=== PATIENT | male | born 1990 | race Caucasian/White ===

== ENCOUNTER 2018-10-10 11:52 | Emergency (ER) | payer BC, SELFPAY ==
[2018-10-10 11:54] VITALS: BP 167/89; PULSE 79; RESP 17; TEMP 36.8; O2SAT 97; BMI 42.2
--- NOTE | 2018-10-10 12:30 | ED.VISSUMM ---
- ER Visit Summary Date of Service: 10/10/18 Chief Complaint: Depressed and suicidal History of Present Illness: The patient is a 27 M no senior past medical history. He does see a counselor at a [facility] in [place]. He is not under formal psychiatric care. Currently has no primary care physician. He is on no medications. States currently he and his are . He said to try to work through that. That has been depressed. He currently has no children. He states his job is going well. He got upset last night and started punching himself multiple times in his legs. He denies any overdose attempt. He is never been admitted for psychiatric care. Physical Examination: Young male no acute distress. Vital signs are stable afebrile. Currently he is calm and cooperative. He is acting appropriately with the staff. H EENT exam unremarkable. Neck nontender. No signs of trauma. Lungs clear to auscultation bilaterally. Heart regular rate and rhythm no murmur. Chest wall nontender. Abdomen soft nontender. Normal bowel sounds no peritoneal signs. Patient is moving all 4 extremities. The neurovascular intact. Equal symmetrical agricultural education teacher strength. Dorsi plantar flexion intact. Full range of motion both upper and lower extremities. No signs of trauma. Back nontender. Neurologically he is awake and alert with no focal motor deficits. No signs of toxidrome. No smell of alcohol. Test Results: CBC normal white count of 6. Hemoglobin 14. Electrolytes unremarkable. Tox screen negative. Alcohol normal. Emergency Department Course and Treatment: Patient will undergo ED mental health evaluation rating labs. Crisis evaluation. Currently I do feel that he will be able to be discharged home safely. I will discussed that with crisis after their evaluation. Treatment Plan: Spoke with the counseling center personnel. He is willing to contract for safety. He will also follow-up with outpatient psychiatric therapy tomorrow. Counseling center personnel and myself are both comfortable with him being discharged home. I reevaluated the patient and he is currently doing well at 1439. Disposition: Discharge Impression: Acute depression Suicidal ideation This note was generated with [employer] dictation software. It may contain incorrect words, spelling, and punctuation that were not noted in review of the chart prior to signing ED Disposition - Plan for ED Patient: Chief Complaint: Suicidal Referrals: Care Physician,No Primary [Primary Care Provider] -
[2018-10-10 12:48] LABS: Absolute Lymphocyte Count 2.48 X10^3/ul (0.83-4.51); Absolute Neutrophil Count 3.7 X10^3/uL (2.0-7.7); Basophil# 0.02 X10^3/uL; Basophil% 0.3 % (0-1); Eosinophils% 2.9 % (0-5); Hematocrit 43.2 % (40-54); Hemoglobin 14.8 g/dl (13.0-16.5); Lymphocyte # 2.48 X10^3/ul (4.0); Mean Corp Hgb Conc 34.3 g/gl (32-36); Mean Corpuscular Hgb 28.5 pg (27.0-32.0); Mean Corpuscular Volume 83.2 fL (80-94); Mean Platelet Vol. 9.2 fl (6.2-12.0); Monocyte# 0.48 X10^3/uL; Neutrophil # 3.69 X10^3/uL (2.7-7.7); Neutrophil % 53.7 % (47-70); Platelet Count 364 K/mm3 (150-450); RBC Distribution Width SD 38.8 fl (35.1-43.9); Red Blood Count 5.19 M/mm3 (4.6-6.2); White Blood Count 6.9 K/mm3 (4.4-11.0)
[2018-10-10 12:49] LABS: POSITIVE COUNT NO; POSITIVE DIFFERENTIAL NO; POSITIVE MORPHOLOGY NO
[2018-10-10 12:55] LABS: Amphetamine Urine VISTA NEGATIVE (<1000 ng/mL); Barbiturate Urine VISTA NEGATIVE (< 200 ng/mL); Benzodiazepine Urine VISTA NEGATIVE (< 200 ng/mL); Cocaine Urine VISTA NEGATIVE (< 300 ng/mL); Ecstacy Urine VISTA NEGATIVE (< 500 ng/mL); Methadone Urine VISTA NEGATIVE (< 300 ng/mL); PCP Urine VISTA NEGATIVE (< 25 ng/mL); THC Urine VISTA NEGATIVE (< 50 ng/mL); Vista UDS pH Range 5
[2018-10-10 12:57] LABS: Anion Gap 10 (5-15); BUN 14 mg/dL (7-18); BUN/Creat Ratio 13.2 RATIO (10-20); Calcium,Total 8.7 mg/dL (8.5-10.1); Chloride 105 mmol/L (98-107); Creatinine, Serum 1.06 mg/dL (0.70-1.30); EST Glomerular Filtration Rate 90 mL/min (>60); Est Glom Filt Rate - Afr Amer 109 mL/min (>60); Estimated Creatinine Clearance 113.46 ml/min; Glucose 94 mg/dL (74-106); Potassium 3.9 mmol/L (3.5-5.1); Sodium Level 141 mmol/L (136-145)
[2018-10-10 13:20] LABS: Alcohol, Blood (Medical)-Serum < 3.0 mg/dL
--- NOTE | 2018-10-10 13:33 | NURSING ---
HANNY, CRISIS, HERE FOR PATIENT
--- NOTE | 2018-10-10 14:40 | ED.DEP ---
ED Disposition - Plan for ED Patient: Disposition: Home or Assisted Living Chief Complaint: Suicidal Instructions: ED Depression Referrals: Counseling,Center [GROUP OF PHYSICIANS] - 1 Day Additional Instructions: Return if you are feeling worse. Follow-up with outpatient counseling center evaluation tomorrow.
--- NOTE | 2018-10-10 14:43 | ED.RN ---
BELONGINGS RETURNED TO PATIENT. DISCHARGE INSTRUCTIONS GIVEN TO AND REVIEWED WITH PATIENT, PATIENT DENIES QUESTIONS OR CONCERNS AND VOICES UNDERSTANDING OF DISCHARGE INSTRUCTIONS. PT AMBULATES OUT OF ROOM WITHOUT DIFFICULTY.
== END 2018-10-10 14:44 | disposition home or self-care (01) ==
PROVIDERS: Emergency Provider Emergency Medicine
DX: F32.9 Major depressive disorder, single episode, unspecified (principal); R45.851 Suicidal ideations
CPT/HCPCS: 80048; 80307; 80320; 85025; 99283; G0480

== ENCOUNTER 2018-10-17 09:00 | Outpatient (RCR) | payer BC, SELFPAY ==
--- NOTE | 2018-10-17 09:05 | BH.SGPN.GN ---
Behaviors/Verbalizations/Mental Status: [] Pt eye contact fair, casually dressed, motor activity appropriate, speech normal rate and tone, mood anxious and depressed, constricted affect, thoughts linear and intact, no evidence of delusions or hallucinations. Client Response/Progress/Benefit: [] Client shared he is reaching out to help through the IOP program because 10 months ago he was from his due to several issues that happen once client started to experience repressed traumatic memories. Client reported he is hoping to reconciliation his marriage but is unsure if that will occur because other issues have come to light since being . 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 Question another positive is his best friend from since then he is visiting currently. Client shared her stressor is having copious amount of confusion over the trauma, recently having blackouts, and his relationship. Client seem to benefit from support from peers. Client to continue IOP level care to stabilize moods, increased healthy coping, and prevent decompensation. Narrative Note: []
--- NOTE | 2018-10-17 09:09 | BH.COMM ---
Communication Note - Communication with Client Communication Note: Met with patient. Completed intake paperwork. No significant changes since pre-admission screening. Denies any active suicidal ideations, plan, or intent.
--- NOTE | 2018-10-17 10:10 | BH.SGPN.GN ---
Behaviors/Verbalizations/Mental Status: [] Eye contact is good. Motor activity is appropriate. Appearance is casual. Speech is Appropriate. Mood is depressed. Affect is flat. Thoughts are linear and logical. No evidence of psychosis. Client Response/Progress/Benefit: [] Pt was an active participant in group activity however no not participate in group discussion. Attentive during the discussions on the the definition and benefits to social support in mental wellness. Attentive during group discussion on obstacles to seeking support. Did well during activity and was able to connect activity to social supports and was attentive during discussion on the importance of asking questions, being specific, clarifying perspectives, and clarifying emotions are necessary when seeking support. Benefited from psychoeducation. Limited progress noted as pt spoke very little however was attentive. This was pt's first day in IOP. Will continue in IOP to maintain safety, stabilize mood, and prevent decompensation. Narrative Note: []
--- NOTE | 2018-10-17 11:10 | BH.SGPN.GN ---
Behaviors/Verbalizations/Mental Status: [] Eye contact is good. Motor activity is appropriate. Appearance is casual. Speech is Appropriate. Mood is depressed. Affect is flat. Thoughts are linear and logical. No evidence of psychosis. Client Response/Progress/Benefit: [] Pt was attentive during group discussion and completed worksheets. Minimal participation during discussion on different types of social support such as mental health, spiritual,personal, and professional. Group discussed the importance of support in different settings. Completed worksheet regarding pt's support desired (mental health), how this support will help (decrease anxiety, decrease isolation, break out of toxic cycle), and steps to take to get this support (reach out, build connections, seek therapy). Progress noted as pt was able to identify the different types of support and strategies to reach out to these supports. Will continue in IOP to maintain safety, prevent decompensation, and stabilize mood. Narrative Note: []
--- NOTE | 2018-10-18 09:50 | BH.MDN_ITS ---
Multi-Disciplinary Note - Note 60-min Individual Time Started:: 12:19 Date: 10/17/18 Purpose of session/treatment goals addressed:: The purpose of session was to discuss current symptoms, stressors, and functioning. Another purpose was to gather additional background information and begin developing goals client would like to focus on during treatment. Eye Contact:: Good Motor Activity:: Slowed Appearance:: Neat, Casual Speech:: Soft, Other - prolonged response Mood:: Anxious, Depressed Affect:: Flat Thoughts:: Linear, Logical, Other - slowed processing, No evidence of hallucinations/delusions noted Staff Interventions:: Therapist asked open ended questions to build rapport and gather client's thoughts and feelings on current functioning, potential barriers, and additional stressors. Therapist gathered additional information in regard to client background and history of mental health sx. Therapist provided support by attentively and empathetically listening and responding. Utilized NC techniques to begin establishment of treatment goals. Client Response:: Client receptive of session, willing to engage and provide input. Client openly discussed thoughts, feelings, and concerns surrounding recent stressors associated with increased mental health symptoms. Client expressed having several psychosocial stressors impacting ability to function at baseline and resulting in increased traumatic memories causing panic and blackout spells. Client indicates hx of self-harming via punching my thighs during these blackout spells. Denies active self harming urges or plan. Client indicated the heart of his concern revolves around his relationship with his which has become increasingly strained in the past 6 months. Reports they are currently and Client is living in [place] with 2 roommates whom he identifies as supportive. Client went into their relationship hx and discussed primary areas of concern associated. Client noted difficulties related to intimacy with his as the catalyst to resurfacing past trauma and his increased depressive and anxious feelings. He additionally believes reports of ?blacking out? and ?losing periods of time? is associated as well. He indicated his relationship is causing discord in other areas such as finances, self- esteem, and ability to move forward in his life. He indicated wanting to be able to increase his ability to manage and move past trauma triggers as well as develop skills to better manage his emotional and mental health and wellbeing. Risks/Concerns:: Client denies SI/HI plan or intention to date. It is a concern that client recently presented to emergency room for suicidal ideation at request of outpatient therapist. Denies plan or intent at time of visit. Client denies any current SI, plan, or intent. Willing and able to contract for safety. Client agrees to call 911 or go to the nearest emergency room if he feel unable to maintain safety of self/others. Progress Toward Goals/Plan:: Limited progress to report as it is CLient first day in IOP program. CLient does not yet have goals established but indicates a desire to improve ability to identify and manage trauma triggers, decrease depression and anxiety, and develop health means for coping.He appears and indicates being motivated to improve functioning and mental health stability. The plan is for client to continue in IOP tx to prevent decompensation and maintain safety. Time Stopped:: 13:22
--- NOTE | 2018-10-18 10:04 | BH.MTP ---
Master Treatment Plan - Patient Information Program Physician:: Ashanti Gibbons Primary Therapist:: rl Redd - Psychiatric Diagnoses Psychiatric Diagnoses:: Major depressive disorder F 33.2. PTSD. Anxiety Diagnosis Code(s):: F33.2 - Estimated LOS Estimated LOS (in weeks):: 6 Problem/Goal #1 - Problem/Goal #1 Stated Goal:: Client will increase mood stability and decrease depressive symptoms, and agitation due to Major Depression through Intensive Outpatient Program. Description of Barriers: Stigma associated with mental illness, relationship conflicts, hx of trauma, lack of motivation, few supports. Functional Impact: Currently daily functioning is severely impacted by depression, ptsd triggers, and anxiety. Pt reports symptoms effecting ability to work, led to crying spells, impacted relationship with supports, and effected ability to function at baseline. Goal Relevant Strengths/Supports: motivated, resilient, intelligent - Objectives Objective #1 Stated Objective: Client will identify 2-3 triggers and 2-3 coping skills to reduce depressive symptoms that lead to negative thinking. Interventions: Through individual and group counseling will help client identify her triggers and teach client various coping strategies to effectively cope with depressive symptoms. Discharge Criteria: Client will have achieved this goal when can identify at least 2 triggers, verbalize two healthy coping strategies and defeat suicidal ideation. Target Date: 11/28/18 Review Date: 11/14/18 Problem/Goal #2 - Problem/Goal #2 Stated Goal:: Client will reduce overall frequency, intensity, and duration of the anxiety so that daily functioning is not impaired. Description of Barriers: Stigma associated with mental illness, relationship conflicts, hx of trauma, lack of motivation, few supports. Functional Impact: Currently daily functioning is severely impacted by depression, ptsd triggers, and anxiety. Pt reports symptoms effecting ability to work, led to crying spells, impacted relationship with supports, and effected ability to function at baseline. Goal Relevant Strengths/Supports: motivated, resilient, intelligent - Objectives Objective #1 Stated Objective: Client will learn and implement 2-3 calming skills to reduce overall anxiety and manage anxiety symptoms. Interventions: Through individual and group counseling client will learn calming/relaxation skills and practices relaxation skills daily Discharge Criteria: Client will have achieved this goal when can verbalize at least 2 calming skills and implement those skills. Target Date: 11/28/18 Review Date: 11/14/18 Objective #2 Stated Objective: Client will decrease ruminating thoughts which cause anxiety. Interventions: Through individual and group counseling pt. will be provided with education on anxiety and effective coping skills. Will explore more in-depth with pt. cause and triggers to ruminating thoughts as well as obstacles to overcoming these ruminative thoughts. Discharge Criteria: Will have completed cost analysis and be more self-aware of triggers to ruminations as well as strategies to better manage ruminations. Target Date: 11/28/18 Review Date: 11/14/18
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
--- NOTE | 2018-10-21 09:07 | BH.SGPN.GN ---
Behaviors/Verbalizations/Mental Status: [] Pt eye contact fair, casually dressed, motor activity appropriate, speech normal rate and tone, mood anxious and depressed, constricted affect, thoughts linear and intact, no evidence of delusions or hallucinations. Reviewed client?s symptom tracker, no signs of suicidal ideation, plan, or intent as of today. Client Response/Progress/Benefit: []Pt engaged throughout session as shown by pt listening attentively to others and sharing thoughts and feelings. Pt reported he had an overall good Thanksgiving gathering with his family. Pt shared he was anxious to go to the family libertarian because it's the first holiday event he has been to without his since they . Pt reported he did get to speak to his dad about things that have been happening in his life which pt reported was positive for him to connect with his dad. Pt stated he is still ruminating about how his relationship with his is not what he wants. Progress noted AEB pt still attending the family holiday dinner despite being anxious due to it being first holiday event being from his . Pt seemed to benefit from expressing thoughts and feelings, as well as receiving support from peers. Pt to continue IOP level of care to decrease depression, increase healthy coping skills, and prevent decompensation. Narrative Note: []
--- NOTE | 2018-10-21 11:15 | BH.SGPN.GN ---
Behaviors/Verbalizations/Mental Status: []Client alert and oriented, neatly dressed and groomed. Eye contact fair. Motor activity restless. Speech within normal limits. Affect flat, mood dysthymic. Thoughts linear, logical, no signs of hallucinations or delusions. Client Response/Progress/Benefit: []Client responded well to session, contributing when prompted, active in setting a personal goal. Client established a SMART goal to help client connect with peers and increase self-confidence. Client?s goal is to practice being vulnerable by sharing two times per group on days client attends IOP. Client identified his barriers as anxiety and judgement. Client able to develop strategies to overcome barriers including: starting small and focusing on positives. Client appeared to benefit from setting a SMART goal to improve his mental health and self-confidence. Progress limited as client has only attended two IOP sessions. Client to continue IOP as he continues to struggle with mood instability, depression, and regulation his emotions.
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
--- NOTE | 2018-10-21 11:44 | BH.DR.ITP ---
Initial Treatment Plan - Patient Information Visit Information: ADMISSION DATE: EXPECTED LOS: 4-6 weeks Diagnoses:: Major depressive disorder F 33.2. PTSD - Problems/Symptoms Problem #1:: Depression Symptom:: Sad mood, anhedonia, difficulty concentrating, suicidal ideation, biologic disruption of sleep Problem #2:: Anxiety Symptom:: Rumination, intrusive traumatic memories, avoidance, dissociative symptoms
--- NOTE | 2018-10-28 09:10 | BH.SGPN.GN ---
Behaviors/Verbalizations/Mental Status: [] Eye contact is good. Motor activity is appropriate. Appearance is neat. Speech is Appropriate. Mood is depressed. Affect is flat. Thoughts are linear and logical. No evidence of psychosis. Reviewed daily check in sheet and pt reports 3/5 for suicidal ideations and 4/5 for intent. Individual counselor notified. Client Response/Progress/Benefit: [] Pt spoke when prompted however was attentive throughout the group. Emotion for today is stressed. Shared with the group that he has had an extremely stressful week reports challenges with communication with ex- and some new legal concerns. Also reports challenges with episcopalian support stating that he is beginning to feel unheard and misunderstood. Was able to identify some positives related to work accomplishments. 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 Benefited from group support and encouragement. Limited progress noted per pt report and daily check-in sheet. Struggling with fleeting suicidal ideations, psycho-social stressors, recent separation, and trauma. Will continue in IOP to maintain safety, decrease depression, and prevent further decompensation. Narrative Note: []
--- NOTE | 2018-10-28 10:20 | BH.SGPN.GN ---
Behaviors/Verbalizations/Mental Status: []Pt eye contact good, casually dressed, motor activity appropriate, speech normal rate and tone, mood dysthymic, congruent affect, thoughts linear and intact, no evidence of delusions or hallucinations. Client Response/Progress/Benefit: []Pt listened attentively to peers and contributed to discussion at times. Pt connected with that quote that often in his relationship there was the illusion they were communicating, however looking back on the relationship he can note they were not fully communicating because not clear or direct . Pt reported a communication barrier is making assumptions because assumptions are often incorrect and lead to increased conflict or problems. Pt added his thoughts to discussion about the four different types of communication (passive, passive-aggressive, aggressive, and assertive). Pt able to identify benefits and costs to each type of communication. Pt reported he finds himself to have a cyclical pattern to his communication in which he will start off being passive then attempt to be assertive, but if that doesn't work will return to passive communication. Pt recognizes being passive reinforces his depressed and anxious symptoms. Pt seemed to benefit from increased awareness of the different types of communication as well as learning about benefits and costs of each style. Narrative Note: []
--- NOTE | 2018-10-28 14:58 | BH.MDN ---
Multi-Disciplinary Note - Note 45-min Individual Time Started:: 11:47 Date: 10/28/18 Purpose of session/treatment goals addressed:: Purpose was to follow-up with patient regarding current symptoms, stressors, and functioning, as well as assess for safety as client indicated increased guthrie for SI on daily symptom tracker. Another purpose was to discuss impact of complex trauma on the brain and stress responses. Additional topics included: Cognitive triangle, safety planning Eye Contact:: Good Motor Activity:: Appropriate Appearance:: Neat, Casual Speech:: Appropriate Mood:: Anxious, Depressed Affect:: Congruent Thoughts:: Linear, Logical, No evidence of hallucinations/delusions noted Staff Interventions:: Asked open-ended questions to elicit information regarding current symptoms and stressors. Utilized reflective listening and empathic responses to normalize client emotions and concerns. Completed risk assessment and aided Client in identifying a healthy coping plan for the weekend. Provided psychoeducation on trauma and potential impact of triggers on stress response. Introduced CBT therapy and provided Client with homework to identify unhealthy or negative thoughts over weekend. Client Response:: Client willing to meet with this therapist to assess for safety and discuss concerns regarding increased scores for suicidal ideation on daily symptom tracker for this date. Client expressed it has been a really stressful week and went on to discuss several psychosocial stressors increasing client anxiety and stress levels. He attributes starting off the week ill as the initial stressor impacting his mental health. Indicates sx were further exacerbated by ongoing legal complications related to a coworker's workman's compensation claim and a dispute regarding finances with client?s estranged . Client went on to express a blackout occurrence following conversation with , in which client reports experiencing loss of time for a period of 7 minutes. Client discussed that he had been at work at the time and next thing he remembers is I woke up staring in the mirror. Client receptive of discussion regarding how past trauma can impact stress response and reviewing areas in which trauma is related to learned coping behaviors. Client shared that he does not currently feel suicidal at this time and further indicated that he has marked high scores on daily sx tracker due to experiencing increased passive thoughts of and stress on the previous date. Client reports that this had likely been due to current stressors in his life and difficulties in coping with separation from his . Client reports plans to spend time celebrating his birthday with his roommate this weekend and indicates he will be able to maintain safety. Willing to seek crisis services should he need over the weekend and follow-up with this therapist on Wednesday, October 31, 2018. Risks/Concerns:: No risks or concerns at this time. Client indicates increased SI on daily symptom tracker was referring to thoughts occurring previous night. Client denies any active suicidal ideation, plan, or intent. Discussed feelings of emotional heaviness and increased stressors today though feels able to maintain safety. Client reports that his synagogue and close friends in the area or primary motivations for living. Client indicates willingness to seek crisis services at local ER should he feel unable to maintain safety over the weekend. Receptive of safety planning with this therapist and indicates plans to celebrate his birthday on Wednesday which is indicative of future orientation. Progress Toward Goals/Plan:: No progress at this time as per client report he has been struggling significantly with negative ruminating thoughts causing increased anxiety and feelings of being overwhelmed. CLient reports onging difficulties in dealing with overwhelming emotions during times of increased stress, which he identifies as resulting in passive thoughts of and/or black out spells. Reports last black out and SI as earlier this week following an argument with . CLient has shown an increase in ability to begin identifying common trigger of high emotional state leading to increased symptoms. CLient continues to report high levels of motivation and is willing to complete homework assigned. Continued IOP with focus on increasing mental health understanding and sx management, as well as begin working on cognitive restructuring skills. Time Stopped:: 12:28
== END 2018-10-28 23:59 ==
LOC: BHIOP 09:00
PROVIDERS: Referring Provider Psychiatry & Neurology Psychiatry; Visit Provider Psychiatry & Neurology Psychiatry
DX: F33.2 Major depressive disorder, recurrent severe without psychotic features (principal); F41.9 Anxiety disorder, unspecified; F43.10 Post-traumatic stress disorder, unspecified
CPT/HCPCS: H0035; 90834; 90837; 90853

== ENCOUNTER 2018-10-31 09:00 | Outpatient (RCR) | payer BC, SELFPAY ==
--- NOTE | 2018-10-31 09:10 | BH.SGPN.GN ---
Behaviors/Verbalizations/Mental Status: [] Eye contact is good. Motor activity is appropriate. Appearance is casual. Speech is Appropriate. Mood is depressed. Affect is flat. Thoughts are linear and logical. No evidence of psychosis. Reviewed daily check in sheet and no reports of suicidal ideations or intent. Client Response/Progress/Benefit: [] Pt spoke only when prompted. Appeared attentive during group discussions. Emotion for today is positive. Shared with the group that his weekend had its ups and downs however overall it was well. Reports occasional emotional distress, ruminations, and depression however overall had fun times with support. Pt's birthday was this weekend and her reports that it was challenging not having his present to celebrate with him as they had been together for several years. Grief reactions and difficulty adjusting. Benefited from group support and encouragement. Progress noted per pt report. Will continue in IOP to maintain safety, prevent decompensation, and stabilize mood. Narrative Note: []
--- NOTE | 2018-10-31 10:15 | BH.SGPN.GN ---
Behaviors/Verbalizations/Mental Status: [] Pt eye contact good, casually dressed, motor activity appropriate, speech normal rate and tone, mood euthymic, congruent affect, thoughts linear and intact, no evidence of delusions or hallucinations. Client Response/Progress/Benefit: []Pt contributed to discussion and listened attentively to peers. When reviewing the quote pt reported assumptions can be barriers placed in front of ourselves because often the assumptions are incorrect and lead to additional problems. Pt provided personal example in which over the weekend he made assumptions about a situation that lead to increased problems and stress for him. Pt shared in his current reality I feel like a lot of people have gaslighted me which he reported has contributed to his confusion and questioning himself. Pt reported in his desired reality he wants to be confident about who he is as a person, his wants, and not doubt himself. Pt seemed to benefit from increased awareness of his current and desired realities. Narrative Note: []
--- NOTE | 2018-10-31 11:14 | BH.SGPN.GN ---
Behaviors/Verbalizations/Mental Status: [] Pt eye contact good, casually dressed, motor activity appropriate, speech normal rate and tone, mood euthymic, congruent affect, thoughts linear and intact, no evidence of delusions or hallucinations. Client Response/Progress/Benefit: [] Client contributed thoughts and ideas at times and listened attentively to others. Client identified his obstacles to achieving his desired reality include: Insecurity, toxic people, negative thoughts, false accusations, excuses, pride, passivity, and second-guessing. Client identified insecurity to be the most impactful obstacle currently. Client worked corporally with peers to identify strategies and ideas to overcome the various obstacles that keep people from moving forward. Client seemed to have benefit from increasing repertoire of skills and strategies that can help him overcome his personal obstacles. Client to continue [facility] level care to decrease depression, increased self-esteem, and prevent decompensation. Narrative Note: []
--- NOTE | 2018-10-31 14:14 | BH.MDN ---
Multi-Disciplinary Note - Note 60-min Individual Time Started:: 12:16 Date: 10/31/18 Purpose of session/treatment goals addressed:: The purpose of this session was to assess current symptoms, stressors, and treatment goal progress. Another purpose was to provide education on cognitive distortions and aid client in identifying common distorted thinking patterns used as well as strategies to begin challenging and replacing these. Eye Contact:: Good Motor Activity:: Appropriate Appearance:: Casual Speech:: Appropriate Mood:: Anxious, Dysthymic, Other - reflective Affect:: Congruent Thoughts:: Linear, Logical, No evidence of hallucinations/delusions noted Staff Interventions:: Asked open-ended questions to elicit information on current sx, stressors, and tx goal progress. Utilized CBT concepts to provide education on cognitive distortions and impact of thoughts on emotions, behaviors, and healthy decision making. Provided various reframing and thought challenging strategies as well as aided provided an example of application of each strategy discussed. Gave assignment to begin daily thought log. Client Response:: Client receptive of session and actively engaged in discussion throughout. He indicated that overall his weekend had gone better than anticipated to which he attributes spending time with supports and use of healthy distractions. CLient indicated he had been concerned that yesterday would be rough as it was client's birthday which has historically been a triggering date. CLient shared the day had initially been alittle difficult and that he had an uncomfortable encounter with one of the leader's of the [facility] in which client caught himself struggling not to ruminate on. CLient however went on to explain limiting future interaction with that person by leaving the service early and felt better as a result. He discussed spending the remainder of the day cleaning and later celebrating his birthday with a group of friends. CLient discussed overall feeling less depressed on this date though continues to struggle with ruminating thoughts causing anxiety and increased stress associated with other's opinions, his relationship with his , and occupational frustrations. Client was receptive of discussion reviewing distorted thinking patterns and the impact thought distortions can have on management of mental health symptoms, self-esteem, and relationships. CLient able to identify specific examples in use of distortions, describing times he has struggled with should & must statements, absolutes, and personalization. Identified connecting with how use of distortions can impact ability to make healthy decisions and resulting in maladaptive coping behaviors. CLient noted finding asking self why am I feeling this way, is there another way to look at this, and am I asking myself something I can't know the answer to as strategies he may benefit from in challenging distortions. CLient receptive of beginning a CBT thought log to improve awareness and ability to apply cognitive restructuring skills. Risks/Concerns:: Denies any suicidal ideations, plan, or intent to date, 10/31/18. Denies any passive thoughts of and indicates an ability to maintain safety at this time. Progress Toward Goals/Plan:: Progress noted in client report of decreased levels of depression on this date. CLient denies any SI or blacking out since last session on 10/28/18 and is doing well to begin increasing awareness of ways treatment materials apply to his own mental health experiences. CLient continues to report high levels of anxiety associated with intrusive ruminating thoughts about current psychosocial stressors, most prodominately his marraige. Client continues to appear to seek external validation of thoughts, specifically those associated with personal decisions and self-esteem. Plan is to continue IOP tx to improve ability to manage anxieties and challenge and replace ruminating thoughts causing anxiety. Time Stopped:: 13:26
--- NOTE | 2018-11-07 09:10 | BH.SGPN.GN ---
Behaviors/Verbalizations/Mental Status: [] Eye contact is good. Motor activity is appropriate. Appearance is neat. Speech is Appropriate. Mood is depressed and anxious. Affect is congruent. Thoughts are linear and logical. No evidence of psychosis. Reviewed daily check in sheet and no reports of suicidal ideations or intent. Client Response/Progress/Benefit: [] Pt spoke only when prompted. Shared that this past weekend and today have been very stressful and anxiety producing. Continues to struggle with relationship with ex- with hopes of reconciliation. 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 Had supportive meeting with a friend and another meeting with different friend in which he felt like he was being lectured at. Pt has a upcoming meeting this evening which he believes with result in him discussing his marriage with strangers in more detail. Continues to struggle with managing external stressors and current coping skills do not appear to be sufficient. Reports being overwhelmed and confused. No progress noted per pt report. Benefited from group support and feedback on thought/stopping and other strategies for managing difficult events. Will continue in IOP to maintain safety, prevent decompensation, and stabilize mood. Narrative Note: []
--- NOTE | 2018-11-07 10:15 | BH.SGPN.GN ---
Behaviors/Verbalizations/Mental Status: []Client alert and oriented, neatly dressed and groomed. Eye contact good. Motor activity appropriate. Speech soft. Affect flat, mood dysthymic. Thoughts linear, logical, no signs of hallucinations or delusions. Client Response/Progress/Benefit: []Client responded well to session, quiet, but appeared to be engaged as shown by eye contact. Client appeared to relate to negative automatic thoughts and cognitive distortions as he shared often being more negative with himself than others. Client?s non-verbal cues indicated he agreed that cognitive distortions can negatively impact one?s mood and behavior. Client listened as the group identified the different types of cognitive distortions. Client reported he has used all the cognitive distortions at some point. Client appeared to benefit from increasing awareness of how cognitive distortions negatively impact client?s mental health. Client to continue IOP as he continues to struggle with mood instability.
--- NOTE | 2018-11-07 11:17 | BH.SGPN.GN ---
Behaviors/Verbalizations/Mental Status: []Client alert and oriented, neatly dressed and groomed. Eye contact good. Motor activity appropriate. Speech soft. Affect constricted- improved from last group AEB client smiling at times, mood dysthymic. Thoughts linear, logical, no signs of hallucinations or delusions. Client Response/Progress/Benefit: []Client responded well to session, active in small group discussion. Client engaged in group activity that demonstrated the effort it takes to challenge and change cognitive distortions. Client agreed with peers that because their distortions have been present for years, it will take time to reframe them. Client able to identify, challenge, and reframe example cognitive distortions in the group. Client shared it was helpful to write out his distortions, so he can have something ?tangible? to challenge. Client listened as the group identified strategies to combat cognitive distortions such as being aware of negative self-talk, using THINK, and looking at the evidence. Client appeared to benefit from learning about cognitive distortions and practicing challenging distorted thoughts. Progress limited as client reports increased awareness, but due to client?s limited attendance it is difficult to see if he is implementing healthy coping skills to manage depression. Client to continue IOP to prevent decompensation and increase mood stability.
--- NOTE | 2018-11-11 08:58 | BH.COMM ---
Communication Note - Communication with Client Communication Note: Client called to cancel his scheduled IOP session for work reasons. Client reports plan to attend IOP on Wednesday11/14/18.
--- NOTE | 2018-11-14 10:27 | BH.COMM ---
Communication Note - Communication with Client Communication Note: Client called in to cancel scheduled group attendance for this date citing mandatory work requirements. Client indicates plans to try and reschedule group attendance for this friday 11/16. Therapist will meet with Client on this date.
--- NOTE | 2018-11-16 10:28 | BH.COMM ---
Communication Note - Communication with Client Communication Note: Client did not call to confirm attendance and did not show for anticipated group and individual sessions on this date. Therapist attempted to contact client to reschedule and discuss attendance concerns. Client unable to be reached and a discrete message was left. Will attempt to follow-up.
--- NOTE | 2018-11-17 14:40 | BH.DS ---
Discharge Summary - Demographics Date of Admission:: 10/17/18 Discharge Date: 11/17/18 Presenting Problems at Admission:: Client is a 28-year-old male with history of PTSD and pression reporting to behavioral health [facility] program following referral from crisis counselor at [facility] ED department on 10/10/18. Client referred to ED by outpatient therapist due to increased suicidal ideation. Denies specific plan or intent. Client reports increased decompensation over the last 6 months resulting in increased sx of depression and anxiety, panic attacks, and decreased ability to function at baseline. Client alert, orient x3, and actively engaged in assessment. Good eye contact, no psychomotor abnormalities. Denies hi/si or psychosis. Thoughts are linear, logical, and void of delusion or hallucination. Discharge Diagnoses:: Major depressive disorder F 33.2. PTSD. Anxiety Reason for Discharge:: Client voluntarily discharged from [facility] after 5 sessions of attendance due to work schedule and interpersonal conflicts impacting client ability to maintain consistent attendance. Client reports he has been unable to take planned time off to attend group due to increase co-workers calling off sick as well as family visiting from out of town for the holidays. Client unable to commit to program attendance requirements at this time. Due to early discharge, discharge surveys and handouts were not completed. Aftercare resources for mental health discussed with client and client was encouraged to follow up with outpatient provider for EMDR at [facility] in [place]. - Treatment Progress During Treatment & Response: Client progress towards treatment goals limited due to inconsistent attendance as client only able to attend 5 sessions prior to discharge. Client attendance issues impacted ability to make significant strides towards overall improvements in management of depression and anxiety. Client able to begin working on identifying factors contributing to ongoing depressive cycle as well as work on identifying distorted thought patterns associated with symptom exacerbation. Client however unable to implement thought challenge strategies on a consistent basis due to limited time spent on developing effective means for cognitive restructuring and consistent identification of distorted thinking patterns. Client progress limited in addressing ongoing trauma-triggers and gaining emotional regulation skills, challenging expressed need for self-validation, and improving self-esteem. During the sessions client attended, client seemed to respond well in both individual and group sessions, actively providing good insight to the discussion, reflecting upon ways materials related to his personal mental health experience, and participating in the activities. During individual sessions client reported high levels of motivation to change, improve self-esteem, and increase resilience. Client was receptive to homework given by therapist, however follow-through is uncertain as client seen for 3 individual sessions without being able to follow-up on last assignment completion due to poor attendance. Issues Still to be Addressed:: Due to client not accomplishing treatment goals, client would benefit from continued work on improving depression and anxiety management. He would specifically benefit from counseling focused on addressing external locus of control, challenging distorted thought patterns, and setting healthy emotional boundaries. Client has a significant trauma history causing ongoing trauma related anxiety and PSTD symptoms. He would benefit from trauma specific treatment and is encouraged to continue with established EMDR counselor. Discharge Recommendations/Instructions:: Client recommended to follow up with individual therapist, Rick Lay at [facility] in [place] for individual and EMDR treatment. Not currently established with outpatient psychiatry and encouraged to schedule an intake appointment with [facility] for ongoing medication management. Discharge Handout: Complete Discharge Handout with client on aftercare options and continuity of care.
--- NOTE | 2018-11-17 15:30 | BH.DS_ITS ---
Discharge Summary - Demographics Date of Admission:: 10/17/18 Discharge Date: 11/17/18 Presenting Problems at Admission:: Client is a 28-year-old male with history of PTSD and pression reporting to behavioral health [facility] program following referral from crisis counselor at [facility] ED department on 10/10/18. Client referred to ED by outpatient therapist due to increased suicidal ideation. Denies specific plan or intent. Client reports increased decompensation over the last 6 months resulting in increased sx of depression and anxiety, panic attacks, and decreased ability to function at baseline. Client alert, orient x3, and actively engaged in assessment. Good eye contact, no psychomotor abnormalities. Denies hi/si or psychosis. Thoughts are linear, logical, and void of delusion or hallucination. Discharge Diagnoses:: Major depressive disorder F 33.2. PTSD. Anxiety Reason for Discharge:: Client voluntarily discharged from [facility] after 5 sessions of attendance due to work schedule and interpersonal conflicts impacting client ability to maintain consistent attendance. Client reports he has been unable to take planned time off to attend group due to increase co-workers calling off sick as well as family visiting from out of town for the holidays. Client unable to commit to program attendance requirements at this time. Due to early discharge, discharge surveys and handouts were not completed. Aftercare resources for mental health discussed with client and client was encouraged to follow up with outpatient provider for EMDR at [facility] in [place]. - Treatment Progress During Treatment & Response: Client progress towards treatment goals limited due to inconsistent attendance as client only able to attend 5 sessions prior to discharge. Client attendance issues impacted ability to make significant strides towards overall improvements in management of depression and anxiety. Client able to begin working on identifying factors contributing to ongoing depressive cycle as well as work on identifying distorted thought patterns associated with symptom exacerbation. Client however unable to implement thought challenge strategies on a consistent basis due to limited time spent on developing effective means for cognitive restructuring and consistent identification of distorted thinking patterns. Client progress limited in addressing ongoing trauma-triggers and gaining emotional regulation skills, challenging expressed need for self-validation, and improving self-esteem. During the sessions client attended, client seemed to respond well in both individual and group sessions, actively providing good insight to the discussion, reflecting upon ways materials related to his personal mental health experience, and participating in the activities. During individual sessions client reported high levels of motivation to change, improve self-esteem, and increase resilience. Client was receptive to homework given by therapistrenee follow-through is uncertain as client seen for 3 individual sessions without being able to follow-up on last assignment completion due to poor attendance. Issues Still to be Addressed:: Due to client not accomplishing treatment goals, client would benefit from continued work on improving depression and anxiety management. He would specifically benefit from counseling focused on addressing external locus of control, challenging distorted thought patterns, and setting healthy emotional boundaries. Client has a significant trauma history causing ongoing trauma related anxiety and PSTD symptoms. He would benefit from trauma specific treatment and is encouraged to continue with established EMDR counselor. Discharge Recommendations/Instructions:: Client recommended to follow up with individual therapist, Rick Lay at [facility] in [place] for individual and EMDR treatment. Not currently established with outpatient psychiatry and encouraged to schedule an intake appointment with the [facility] for ongoing medication management. Discharge Handout: Complete Discharge Handout with client on aftercare options and continuity of care.
--- OUTSIDE RECORDS SUMMARY | 2018-12-24 15:09 | XMS RPT_ITS ---
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 / F33.2(ICD-10) 12/06/2017 Admitting Unsp intestnl Anil, Marion Active [facility] Diagnosis obst, unsp as to System partial versus Repository complete obst / K56.609(ICD-10) 12/06/2017 Admitting Umbilical hernia Anil Marion Active [facility] Diagnosis without System obstruction or Repository gangrene / K42.9(ICD-10) 12/06/2017 Admitting Radiographic dye Anil, Marion Active [facility] Diagnosis allergy status / System Z91.041(ICD-10) Repository 12/06/2017 Admitting Right lower Anil, Marion Active [facility] Diagnosis quadrant pain / System R10.31(ICD-10) Repository PROCEDURES PROCEDURES No Procedure Records FoundRESULTS RESULTS DISCHARGE INSTRUCTION Observed: 10/10/2018 Status: F Source: [place] 3:42 PM [facility] REPOSITORY [facility] Medical Records Department [address] [place] [address] Discharge Instruction 10/10/18 1440 MR#: [id number] Acct: [id number] Name: JUAN IBARRA Nusrat Rep #: [id number] : 1990 27 From: Oscar Lopez MD PCP: Care Physician, No Primary Status: DEP ER ED Disposition - Plan for ED Patient: Disposition: Home or Assisted Living Chief Complaint: Suicidal Instructions: ED Depression Referrals: Counseling,Center [GROUP OF PHYSICIANS] - 1 Day Additional Instructions: Return if you are feeling worse. Follow-up with outpatient counseling center evaluation tomorrow. What to do if you have Problems For any increased pain, shortness of breath, bleeding, nausea or vomiting, chest pain, or any unexpected problems, contact your Primary Care Provider. Call [facility] ([phone]) or report to the closest Emergency Room. Call 911 if necessary. 10/10/18 1542 <Electronically signed by Oscar Lopez MD> Date Oscar Lopez MD Cosigner Signature (If Indicated): Date CC: No Primary Care Physician EMERGENCY DEPARTMENT Observed: 10/10/2018 Status: F Source: [place] SUMMARY 3:42 PM [facility] REPOSITORY [facility] Medical Records Department [address] [place] [address] Emergency Department Summary 10/10/18 1230 MR#: [id number] Acct: [id number] Name: JUAN IBARRA Nusrat Rep #: [id number] : 1990 27 From: Oscar Lopez MD PCP: Alexis Physician, No Primary Status: DEP ER - ER Visit Summary Date of Service: 10/10/18 Chief Complaint: Depressed and suicidal History of Present Illness: The patient is a 27 M no senior past medical history. He does see a counselor at a [facility] in [place]. He is not under formal psychiatric care. Currently has no primary care physician. He is on no medications. States currently he and his are . He said to try to work through that. That has been depressed. He currently has no children. He states his job is going well. He got upset last night and started punching himself multiple times in his legs. He denies any overdose attempt. He is never been admitted for psychiatric care. Physical Examination: Young male no acute distress. Vital signs are stable afebrile. Currently he is calm and cooperative. He is acting appropriately with the staff. H EENT exam unremarkable. Neck nontender. No signs of trauma. Lungs clear to auscultation bilaterally. Heart regular rate and rhythm no murmur. Chest wall nontender. Abdomen soft nontender. Normal bowel sounds no peritoneal signs. Patient is moving all 4 extremities. The neurovascular intact. Equal symmetrical soa integration developer strength. Dorsi plantar flexion intact. Full range of motion both upper and lower extremities. No signs of trauma. Back nontender. Neurologically he is awake and alert with no focal motor deficits. No signs of toxidrome. No smell of alcohol. Test Results: CBC normal white count of 6. Hemoglobin 14. Electrolytes unremarkable. Tox screen negative. Alcohol normal. Emergency Department Course and Treatment: Patient will undergo ED mental health evaluation rating labs. Crisis evaluation. Currently I do feel that he will be able to be discharged home safely. I will discussed that with crisis after their evaluation. Treatment Plan: Spoke with the counseling center personnel. He is willing to contract for safety. He will also follow-up with outpatient psychiatric therapy tomorrow. Counseling center personnel and myself are both comfortable with him being discharged home. I reevaluated the patient and he is currently doing well at 1439. Disposition: Discharge Impression: Acute depression Suicidal ideation This note was generated with Tweetwall dictation software. It may contain incorrect words, spelling, and punctuation that were not noted in review of the chart prior to signing ED Disposition - Plan for ED Patient: Chief Complaint: Suicidal Referrals: Care Physician,No Primary [Primary Care Provider] - What to do if you have Problems For any increased pain, shortness of breath, bleeding, nausea or vomiting, chest pain, or any unexpected problems, contact your Primary Care Provider. Call [facility] ([phone]) or report to the closest Emergency Room. Call 911 if necessary. 10/10/18 1542 <Electronically signed by Oscar Lopez MD> Date Oscar Lopez MD Cosigner Signature (If Indicated): Date CC: No Primary Care Physician ALCOHOL, BLOOD Collected: 10/10/2018 Status: F Source: [place] (MEDICAL)-SERUM 1:10 PM [facility] REPOSITORY TYPE CODE TESTS RESULT OUT OF RANGE REFERENCE UNITS LAB L501.9100 mg/dL Normal SERUM < 3.0 ETOH Result Comment: The serum:whole blood ethanol ratio is approximately 1.14 and varies slightly with hematocrit. Medical Alcohol reference interval and critical value in non-tolerant individuals; 50 - 100 Impairment 100 Intoxication 100 - 250 Severe Poisoning 250 - 400 Deep/possible fatal coma Performed By: #### L501.9100 #### [facility] [address] [place], [address] CBC W/DIFF, AUTOMATED Collected: 10/10/2018 Status: F Source: [place] 12:30 PM [facility] REPOSITORY TYPE CODE TESTS RESULT OUT OF RANGE REFERENCE UNITS LAB L100.1000 4.4-11.0 K/mm3 Normal WBC 6.9 LAB L100.1200 4.6-6.2 M/mm3 Normal RBC 5.19 LAB L100.1300 13.0-16.5 g/dl Normal HGB 14.8 LAB L100.1400 40-54 % Normal HCT 43.2 LAB L100.1500 80-94 fL Normal MCV 83.2 LAB L100.1600 27.0-32.0 pg Normal MCH 28.5 LAB L100.1700 32-36 g/gl Normal MCHC 34.3 LAB L100.1810 11.6-14.6 % Normal RDW CV 13.0 LAB L100.1820 35.1-43.9 fl Normal RDW SD 38.8 LAB L100.1900 150-450 K/mm3 Normal PLT 364 LAB L100.2000 6.2-12.0 fl Normal MPV 9.2 LAB L100.2100 47-70 % Normal NEUT% 53.7 LAB L100.2200 19-41 % Normal LY% 36.0 LAB L100.2300 0-10 % Normal MONO% 7.0 LAB L100.2400 0-5 % Normal EO% 2.9 LAB L100.2500 0-1 % Normal BASO% 0.3 LAB L100.2550 0.0-0.9 % Normal IM GRAN % 0.100 Result Comment: IG% - Immature Granulocytes (promyelocytes, myelocytes and metamyelocytes) > 1% indicates that a LEFT SHIFT is Present. LAB L100.2620 2.0-7.7 X10 3/uL Normal Absolute Neut 3.7 LAB L100.2720 0.83-4.51 X10 3/ul Normal Absolute Lymph 2.48 Performed By: #### L100.0100 #### [facility] [address] [place], [place], [id number] BASIC METABOLIC Collected: 10/10/2018 Status: F Source: [place] PROFILE ([facility]) 12:30 PM [facility] REPOSITORY TYPE CODE TESTS RESULT OUT OF RANGE REFERENCE UNITS LAB L501.0100 74-106 mg/dL Normal GLU 94 Result Comment: Please note revised GLUCOSE reference range effective 2017. LAB L501.1000 7-18 mg/dL Normal BUN 14 LAB L501.1100 0.70-1.30 mg/dL Normal CREAT,SERUM 1.06 Result Comment: The validity of the calculated GFR AND GFRAA in patients over 70 years has not been determined. Clinical correlation is essential. LAB L501.1110 >60 mL/min Normal EST GFR 90 Result Comment: Non- GFR Calc LAB L501.1115 >60 mL/min Normal EST GFR - AA 109 Result Comment: GFR Calc LAB L501.1255 ml/min Normal Estimated CRCL 113.46 LAB L501.1300 10-20 RATIO BUN/CRE Normal 13.2 LAB L501.2200 8.5-10 mg/dL .1 CA Normal 8.7 LAB L501.5300 136-14 mmol/L 5 NA Normal 141 LAB L501.5600 3.5-5. mmol/L 1 K Normal 3.9 LAB L501.5900 98-107 mmol/L CL Normal 105 LAB L501.6100 21.0-3 mmol/L 2.0 CO2 Normal 26.0 LAB L501.6200 5-15 GAP Normal 10 Performed By: #### L500.2500 #### [facility] [address] [place], [place], [id number] URINE DRUG SCREEN Collected: 10/10/2018 Status: F Source: [place] ([facility]) 12:27 PM [facility] REPOSITORY TYPE CODE TESTS RESULT OUT OF RANGE REFERENCE UNITS LAB L505.0075 TO BE Normal CONFIRMED Result Comment: CONFIRMATORY TESTING FOR ALL POSITIVE URINE DRUG SCREEN RESULTS WILL ONLY BE SENT OUT UPON PHYSICIAN ORDER. VISTA Urine Drug Screen methods provide only preliminary analytical test results. A more specific alternate chemical method must be used in order to obtain a confirmed analytical result. Gas chromatography/mass spectrometery (GC/MS) is the preferred confirmatory method. Clinical consideration and professional judgement should be applied to any drug of abuse test result, particularly when preliminary positive results are used. URINE TCA TESTING MUST BE ORDERED SEPARATELY. USE TEST MNEMONIC: [facility] LAB L505.5005 VISTA UDS PH 5 Normal LAB L505.5015 <1000 ng/mL AMPHETAMINES Normal NEGATIVE LAB L505.5025 < 200 ng/mL BARBITIURATES Normal NEGATIVE LAB L505.5035 < 200 ng/mL BENZODIAZIPINE Normal NEGATIVE LAB L505.5045 < 300 ng/mL COCAINE Normal NEGATIVE LAB L505.5055 < 500 ng/mL ECSTACY Normal NEGATIVE LAB L505.5065 < 300 ng/mL METHADONE Normal NEGATIVE LAB L505.5075 < 300 ng/mL OPIATES Normal NEGATIVE LAB L505.5085 < 25 ng/mL PCP Normal NEGATIVE LAB L505.5095 < 50 ng/mL THC Normal NEGATIVE Performed By: #### L505.5000 #### [facility] [address] [place], [place], [id number] CT ABDOMEN/PELVIS W/ Observed: 12/06/2017 Status: F Source: [employer] CONTRAST 2:59 PM SYSTEM REPOSITORY Patient Name: JUAN IBARRA CT Exam Date/Time 12/06/2017 14:14:[address] Abdomen/Pelvis w/ IV Contrast (IV Onl Ordering Physician MD LASHONDA, GILMA Shabazz Accession Number [id number] CPT4 Codes 23994 (CT Abdomen/Pelvis w/ IV Contrast (IV Onl), Q9967 () Reason For Exam ABDOMINAL PAIN Report ABDOMINAL AND PELVIC CT WITH IV CONTRAST History: Right abdominal pain, diarrhea, nausea and vomiting Comparison CT: None available Technique: Multislice volume acquisition abdominal and pelvic axial CT sections from the diaphragm through the symphysis pubis following IV injection of 75 mL of Isovue but without oral contrast , as requested. Multiplanar sagittal and coronal reconstructed images also obtained. Findings: Abdominal CT shows unremarkable appearance of the liver, spleen, pancreas, both adrenals, and the right kidney. Left kidney has 3 mm hypodensity suggesting cysts . The gallbladder is partially distended. Pelvic CT shows mildly distended urinary bladder. There is a small umbilical hernia containing fat. The exam is limited without oral contrast. There are few mildly distended proximal small bowel loops containing air-fluid levels in the left mid abdomen that could reflect mild partial small bowel obstruction. There is no abdominal or pelvic fluid collections, soft tissue inflammation, or sizable lymphadenopathy allowing for scattered nonspecific subcentimeter short axis diameter lymph nodes. The appendix is visualized without appendicitis. Partially visualized lung bases show no acute infiltrate. IMPRESSION: Few mildly distended small bowel loops suggest partial small bowel obstruction. Small umbilical hernia containing fat. Report Dictated on Final Dictated: 12/06/2017 2:59 pm Dictating Physician: MD EAGLE AHMAD Signed Date and Time: 12/06/2017 3:12 pm Signed by: MD EAGLE AHMAD Transcribed Date and Time: 12/06/2017 2:59 URINALYSIS,MACRO Collected: 12/06/2017 Status: F Source: [employer] 1:49 PM SYSTEM REPOSITORY TYPE CODE TESTS RESULT OUT OF REFERENCE UNITS RANGE LAB APPUR Clear Appearance Normal Clear LAB COLUR Lt. Yellow Color Normal Yellow LAB USG 1.005-1.030 Specific Normal [place],Urine 1.020 LAB UPH 5.0-8.0 pH,Urine Normal 5.0 LAB ULUK Negative Leukocytes Normal NEG LAB UNIT Negative Nitrites Normal NEG LAB UPRO Negative mg/dL Total Normal Protein,Urine 1+ (30) LAB UGLU Negative mg/dL Normal Glucose,Urine NEG (Normal) LAB UKET Negative mg/dL Normal Ketone,Urine Negative LAB UURO 0-1 mg/dL Normal Urobilinogen Normal (0.2) LAB UBIL Negative Normal Bilirubin,Ur Negative LAB UBLD Negative {RBC}/uL Occult Normal Blood,Ur Negative Performed By: #### UAAPURVA, UAMIC #### [address] [address] URINALYSIS,MICROSCOPIC Collected: Status: F Source: [facility] 12/06/2017 1:49 PM [facility]ALTH SYSTEM REPOSITORY TYPE CODE TESTS RESULT OUT OF REFERENCE UNITS RANGE LAB VOLUR Normal Volume,Urine 12 ml LAB WBCU 0-5 /[HPF] Normal WBC,Urine Negative LAB RBCU 0-2 /[HPF] Normal RBC,Urine Negative LAB EPIU 3-5 /[HPF] Normal Epithelial Cells Negative LAB LUH Negative Bacteria Normal Few (1-5) LAB MUC Negative Mucous Normal Threads Few Performed By: #### UAAPURVA, UAMIC #### [place] [id number] COMP METABOLIC PANEL Collected: 12/06/2017 Status: F Source: [facility] [employer] 1:11 PM SYSTEM REPOSITORY TYPE CODE TESTS RESULT OUT OF RANGE REFERENCE UNITS LAB NA3 135-145 mmol/L Normal Sodium 139 LAB K3 3.5-5.1 mmol/L Normal Potassium 3.7 LAB CL3 98-109 mmol/L Normal Chloride 103 LAB CO23 21-32 mmol/L Normal Carbon Dioxide 28 LAB ANIN3 Anion Normal Gap 8 LAB GLUC3 70-100 mg/dL High Glucose 104 Result Comment: . LAB BUN3 7-25 mg/dL Normal Urea Nitrogen 12 LAB CRET3 0.55-1.40 mg/dL Normal Creatinine 1.19 LAB GF3BR >60 mL/min Normal eGFR >60.0 LAB GF3WR >60 mL/min Normal eGFR OTHER >60.0 Result Comment: Source- MDRD equation with creatinine calibration to IDDE(NKDEP) eGFR not recommended for drug dose adjustment LAB CA3 8.2-10.1 mg/dL Calcium Normal 8.9 LAB ALB3 3.4-5.0 g/dL Albumin, Serum Normal 3.9 LAB TP3 6.4-8.2 g/dL Total Protein Normal 7.6 LAB BILT3 0.2-1.0 mg/dL Normal Bilirubin,Total 0.2 LAB ALKP3 45-117 U/L Alkaline Normal Phosphatase 85 LAB ALT3 12-78 U/L ALT (SGPT) Normal 30 LAB AST3 15-37 U/L AST (SGOT) Normal 16 Performed By: #### CMP3, LACT3, HEMDF #### [address] [address] LACTIC ACID Collected: 12/06/2017 Status: F Source: [employer] 1:11 PM SYSTEM REPOSITORY TYPE CODE TESTS RESULT OUT OF RANGE REFERENCE UNITS LAB LACT3 0.4-2.0 mmol/L Normal Lactic Acid 1.3 Performed By: #### CMP3, LACT3, HEMDF #### [address] [address] HEMOGRAM W/ AUTODIFF Collected: 12/06/2017 Status: F Source: [employer] 1:11 PM SYSTEM REPOSITORY TYPE CODE TESTS RESULT OUT OF REFERENCE UNITS RANGE LAB IWBC 3.6-10.7 10*3/uL WBC Normal 7.5 LAB RBC 4.40-5.90 10*6/uL RBC Normal 5.53 LAB HGB 13.0-18.0 g/dL Hemoglobin Normal 15.3 LAB HCT 40.0-52.0 % Hematocrit Normal 46.5 LAB MCV 80.0-98.0 fL MCV Normal 84.0 LAB MCH 26.0-34.0 pg MCH Normal 27.6 LAB MCHC 32.0-36.0 % MCHC Normal 32.9 LAB RDW 11.5-14.5 % RDW Normal 12.1 LAB PLT 140-440 10*3/uL Platelet Normal 395 LAB MPV 7.4-10.4 fL MPV Normal 8.3 LAB GRAN% % Granulocytes Normal 49.0 LAB LYMP% % Lymphocytes Normal 41.6 LAB MONO% % Monocytes Normal 7.0 LAB EOS% % Eosinophils Normal 1.2 LAB BAS% % Basophils Normal 1.2 LAB ANC 1.8-7.0 10*3/uL Abs Normal Neutrophile Cnt 3.7 LAB ALC 1.0-4.3 10*3/uL Abs Lymph Cnt Normal 3.1 LAB AMC 0.0-0.8 10*3/uL Abs Monocyte Normal Cnt 0.5 LAB AEC 0.0-0.5 10*3/uL Abs Eosin Cnt Normal 0.1 LAB ABC 0.0-0.2 10*3/uL Abs Baso Cnt Normal 0.1 Performed By: #### CMP3, LACT3, HEMDF #### [address] [address] ALLERGIES ALLERGIES DATE TYPE / CODE NAME / CODE REACTION SEVERITY SOURCE 10/10/2018 Drug No Known Unknown [facility] Allergy/4160 Allergies/F00 [facility] 58392(SNOMED 3752078(RXNOR Repository CT) M) ENCOUNTERS ENCOUNTERS ADMIT/DISCHARGE ACCOUNT NUMBER ADMITTING ENCOUNTER LOCATION SOURCE CLASS 10/31/2018 [id number] Ambulatory [facility] ding:BHIOP Repository 10/17/2018/10/28/20 [id number] Ambulatory [address] ding:BHIOP Repository 10/10/2018/10/10/20 [id number] Emergency [address] ding:ED Repository 12/06/2017 [id number] [address] [place] [address] ERRoom: System [id number]: Repository [id number] PAYERS PAYERS ENCOUNTER GUARANTOR PAYER SUBSCRIBER SOURCE 10/31/2018 JUAN L Primary JUAN L Kelly [id number] Insurance:ANTHEMPolic ROBBINSDOB: [facility] pilar ABDUL [facility]: [id number] [address]Hts: [id number] Repository Date:[id number] BLOSSOM () [id number], [place] [address]TV: 10/31/2018 Secondary NOT GIVENUNK Carol Insurance:SELF PAY [facility] Number: Effective Repository Date:2018-10-29 10/17/2018 JUAN L Primary JUAN L Carol [id number] Insurance:ANTHEMPolic ROBBINSDOB: [facility], y Number: [id number] [address]Vre: [id number] Repository Date:0975-54-98YR [address] () [id number] [place] [address]WB: 10/17/2018 Secondary NOT GIVENUNK Carol Insurance:SELF PAY [facility] Number: Effective Repository Date:2018-10-17 10/10/2018 JUAN L Primary JUAN L Kelly [id number] Insurance:ANTHEMPolic ROBBINSDOB: [facility], y Number: [id number] [address]Ofm: [id number] Repository Date:0930-68-08HH [address] () [id number], [place] [address]FP: 10/10/2018 Secondary NOT GIVENUNK Carol Insurance:SELF PAY [facility] Number: Effective Repository Date:2018-10-10 12/06/2017 Juan L Primary Juan L [facility] RobbinsDOB: Insurance:[employer] RobmarissasDOB: System E licy Number: [id number] Repository [facility] Effective Date: [address] [place] [address]Bmr: ()
== END 2018-11-28 23:59 ==
LOC: BHIOP 09:00
PROVIDERS: Referring Provider Psychiatry & Neurology Psychiatry; Visit Provider Psychiatry & Neurology Psychiatry
DX: F33.2 Major depressive disorder, recurrent severe without psychotic features (principal); F41.9 Anxiety disorder, unspecified; F43.10 Post-traumatic stress disorder, unspecified
CPT/HCPCS: H0035; 90853

== ENCOUNTER 2023-04-27 21:35 | Emergency (ER) | payer BC, SELFPAY ==
[2023-04-27 21:36] VITALS: BP 138/88; PULSE 61; RESP 15; TEMP 36.6; O2SAT 93
[2023-04-27 21:57] VITALS: BMI 42.7
--- NOTE | 2023-04-27 22:57 | EX.ED.DYSGE1 ---
HPI History of Present Illness Chief Complaint: Dental Informant: patient and spouse/S.O. Narrative Narrative: Patient is a 32-year-old male with no significant past medical history. He states he has had irritation to his left upper tooth for multiple months. He states in the last 1 day has had sharp increase in pain. He states there is no fevers chills difficulty breathing or swallowing he denies any recent trauma. He states that he is appoint with a dentist tomorrow but the pain is not improving with Tylenol and Motrin so therefore he presents for evaluation [facility] Medical History no medical history Home Medications NK 10/10/18 [History Last Taken Unknown] Allergy/AdvReac Type Severity Reaction Status Date / Time No Known Allergies Allergy Verified 04/27/23 21:39 Social History Smoking Status: Never smoker ROS ROS ED Constitutional Constitutional ED: Denies chills or fever(s) ENT ENT ED: Reports other Details: Positive dental pain ; Denies sore throat Cardiovascular Cardiovascular: Denies chest pain Respiratory/Chest Respiratory/Chest: Denies cough or dyspnea Gastrointestinal Gastrointestinal: Denies abdominal pain, diarrhea, nausea or vomiting Genitourinary Genitourinary ED: Denies dysuria Musculoskeletal Musculoskeletal: Denies myalgias Integumentary Denies rash Neurologic Neurologic: Denies headache(s) Hematologic/Lymphatic Hematologic/Lymphatic: Denies easy bleeding or easy bruising EXAM Physical Exam Const Vital Signs: 04/27/23 21:36 Temperature 97.9 F Temperature Source Temporal Pulse Rate 61 Respiratory Rate 15 Blood Pressure 138/88 H Blood Pressure Mean 104 Pulse Ox 93 Oxygen Delivery Method Room Air Positive well nourished and well developed General Appearance ED: well developed HEENT Reports moist mucous membranes HEENT Narrative: Patient has a dental carry present in the left upper molar without secondary abscess formation noted. No tongue or lip swelling no oral lesions no airway edema or compromise. Eyes PERRL and EOMs intact bilaterally Neck supple Neck Narrative: No brawny edema in the submental space to suggest Judd's angina. Resp normal respiratory effort and clear to auscultation bilaterally Cardio regular rate and regular rhythm Extremity normal to inspection Neuro oriented x3 and CN's II-XII intact bilaterally Sensorium / Orientation: alert Psych mental status grossly normal Skin no rashes or lesions noted MDM MDM MDM Narrative Medical decision making narrative: Patient presented to the ER with stable vital. Differential diagnosis includes nerve root exposure from dental caries versus dental abscess versus ANUG versus Judd's angina. There is no brawny edema in the submental space base going against Judd's angina and he has no signs of necrotizing gingivitis. He has no airway edema or compromise and therefore there is no need for imaging or laboratory test. We discussed starting the patient on antibiotics but as he is seeing the dentist in less than 24 hours he does not want to start medication until he is evaluated by them. Therefore this time we will simply be given a dental block as documented below for pain relief and is otherwise safe for discharge. Patient was given a left superior alveolar dental block using 1.5 ml's of 2% lidocaine with epinephrine and 1.5 ml's of 0.5% Marcaine. Patient achieved good anesthesia with the injection and tolerated the procedure well without complication History & Record Review Discussion w/independent historian: Patient and Significant other Discharge Plan Triage Chief Complaint: Dental ED Provider: Dell Willson Dx/Rx/DC Orders Clinical Impression: Pain, dental, Dental caries Instructions: ED Dental Pain Prescriptions: No Action NK Primary Care Provider: Care Physician,No Primary Referrals: Care Physician,No Primary [Primary Care Provider] - Activity Restrictions/Additional Instructions: Please follow-up with your dentist to discuss need for antibiotics and or tooth removal and return to the ER should you have any further concerns Disposition Disposition: Home, Self Care Discharge Date/Time: 04/27/23 23:04
== END 2023-04-27 23:04 | disposition home or self-care (01) ==
PROVIDERS: Emergency Provider Emergency Medicine; Visit Provider Emergency Medicine
DX: K02.9 Dental caries, unspecified (principal)
CPT/HCPCS: 99282

== ENCOUNTER 2023-05-11 10:28 | Emergency (ER) | payer BC, SELFPAY ==
[2023-05-11 10:29] VITALS: BP 153/87; PULSE 64; RESP 15; TEMP 36.2; O2SAT 100; BMI 39.0
--- NOTE | 2023-05-11 11:15 | ED.VIS.DENTA ---
HPI History of Present Illness Chief Complaint: Dental Detail of Chief Complaint: Dental pain, tooth #14 Informant: patient Onset/Context/Timing Onset: Weeks (2.5 weeks) Context: Sudden Onset Timing: Continuous and Waxes and wanes Quality: Severe pain Location: Tooth #14 Current Severity: Moderate Maximum Severity: Severe Worsened by: Hot and cold liquids Associated Symptoms Assocated Symptom - Dental: cold sensitivity and hot sensitivity; Negative for fever, jaw swelling or face swelling Narrative Narrative: Patient 32-year-old male who is seen at [facility] ([place], [place]). Prescribed a large white antibiotic pill. He believes with ciprofloxacin. States has been on antibiotics for 2 weeks. He states he was not able to sleep last evening. He is scheduled to have the tooth extracted tomorrow. He denies history medic fever, heart murmur, SBE or being immune suppressed. He denies history of diabetes. He denies difficulty opening closing his mouth. He denies trouble speaking or swallowing. He denies objective or subjective fever. He has not noted a rash Prior similar symptoms: Yes Recent Illness/Hospitalization: No PFSH PFSH Home Medications ciprofloxacin HCl 500 mg tablet 500 mg PO TID 05/11/23 [History Last Taken 05/11/23] Allergy/AdvReac Type Severity Reaction Status Date / Time No Known Allergies Allergy Verified 05/11/23 10:30 Social History (Updated 05/11/23 @ 11:[address] Juan Carlos Joshi MD) Smoking Status: Never smoker alcohol intake: current alcohol intake frequency: holidays/special occasions only substance use type: does not use ROS ROS ED Constitutional Constitutional ED: Denies chills, fever(s), subjective, sweats or weight loss Eyes Eyes: Denies blurry vision or change in vision ENT ENT ED: Denies ear pain, rhinorrhea or sore throat Cardiovascular Cardiovascular: Denies chest pain, palpitations or racing heartbeat Respiratory/Chest Respiratory/Chest: Denies cough or dyspnea Gastrointestinal Gastrointestinal: Denies nausea or vomiting Musculoskeletal Musculoskeletal: Denies neck pain Integumentary Denies rash Neurologic Neurologic: Denies headache(s), paresthesias or weakness Hematologic/Lymphatic Hematologic/Lymphatic: Denies easy bleeding or easy bruising EXAM Physical Exam Const Vital Signs: 05/11/23 10:29 Temperature 97.2 F L Temperature Source Temporal Pulse Rate 64 Respiratory Rate 15 Blood Pressure 153/87 H Blood Pressure Mean 109 Pulse Ox 100 Oxygen Delivery Method Room Air Positive well nourished, well developed and obese General Appearance ED: well developed; Negative for NAD Nutritional Appearance: obese HEENT HEENT Narrative: Head is atraumatic normocephalic. Ears are normal. TMs are normal. Nares patent. Posterior pharynx is unremarkable. Midline uvula. Tooth #14 has decay with exposure of pulp. There is no swelling around the tooth. Patient has poor dentition as well as gingivitis and periodontal disease. There is no evidence of trismus. There is no facial cellulitis. Eyes PERRL and EOMs intact bilaterally General Eye ED: Negative for pale conjunctiva or scleral icterus Neck no lymphadenopathy, supple and no JVD Neck Narrative: Trachea is midline. There is no inspiratory stridor. Resp normal respiratory effort and clear to auscultation bilaterally Cardio regular rate, regular rhythm, S1 normal heart sound, S2 normal heart sound and no murmurs Extremity normal to inspection and no joint enlargement General Extremety ED: Negative for edema General Extremity: Negative for edema Neuro oriented x3, CN's II-XII intact bilaterally and moves all extremities Sensorium / Orientation: alert Psych mental status grossly normal Skin no rashes or lesions noted and no wounds MDM MDM MDM Narrative Medical decision making narrative: Patient has irreversible pulpitis. Dental block was placed. Patient is presently antibiotics. Since she is scheduled for extraction tomorrow pain medicines were not prescribed. Treatment and Re-Evaluation Narrative: Has been reassessed x2 most recent at 1129. Patient is not pain-free but he states the pain is markedly better. Plan is to discharge to home with work excuse. Discharge Plan Triage Chief Complaint: Dental ED Provider: Juan Carlos Joshi Dx/Rx/DC Orders Clinical Impression: Symptomatic irreversible pulpitis, Complex dental cavity, Elevated BP without diagnosis of hypertension Prescriptions: No Action ciprofloxacin HCl 500 mg tablet 500 mg PO TID Label Comments: TAKE 1 TABLET BY MOUTH THREE TIMES DAILY Stand Alone Forms: ED Work / School Excuse Primary Care Provider: Care Physician,No Primary Referrals: Care Physician,No Primary [Primary Care Provider] - Dentist,Your [STAFF PHYSICIAN] - Keep Jossie appointment Disposition Disposition: Home, Self Care
== END 2023-05-11 11:43 | disposition home or self-care (01) ==
PROVIDERS: Emergency Provider Emergency Medicine; Visit Provider Emergency Medicine
DX: K04.02 Irreversible pulpitis (principal); K02.9 Dental caries, unspecified; R03.0 Elevated blood-pressure reading, without diagnosis of hypertension; E66.9 Obesity, unspecified
CPT/HCPCS: 99282